=== PATIENT | female | born 1965 | race African-American/Black ===

== ENCOUNTER 2021-04-06 10:23 | Emergency (ER) | payer MEDICAID, OTHER ==
[~2021-04-06] VITALS: Ht 157.5 cm; Wt 45.0 kg
[2021-04-06] MEDS ORDERED: CLONIDINE 0.2MG TABLET PO ONE (11:00)
[2021-04-06 11:42] LABS: HEMATOCRIT. 37.6 % (36.0-48.0); HEMOGLOBIN. 12.3 g/dL (12.0-16.0); MEAN CORPUSCULAR HEMOGLOBIN 30.9 pg (28.0-32.0); MEAN CORPUSCULAR VOLUME 94.1 fL (81.0-99.0); MEAN PLATELET VOLUME 8.8 fl (7.4-10.4); PLATELET 570 x1000/uL (130-400); RED CELL DISTRIBUTION WIDTH 14.3 % (11.6-14.6)
[2021-04-06 11:45] LABS: CHLORIDE 104 mEq/L (98-107)
[2021-04-06 12:27] LABS: PLATELET ESTIMATE INCREASED
[2021-04-06] MEDS ORDERED: DEXTROSE 50% WATER 50ML SYRINGE IV ONE (13:00)
[2021-04-06 15:24] VITALS: BP 141/84
== END 2021-04-06 15:35 | disposition home or self-care (01) ==
LOC: ER 10:41
DX: E11.649 Type 2 diabetes mellitus with hypoglycemia without coma (principal); I16.0 Hypertensive urgency; I10 Essential (primary) hypertension; Z20.822 Contact with and (suspected) exposure to COVID-19
CPT/HCPCS: 36415; 80053; 82962; 85025; 87426; 96374; 99285